=== PATIENT | female | born 1955 | race Caucasian/White ===

== ENCOUNTER 2016-10-24 09:02 | Day surgery (SDC) | payer BC ==
[2016-10-24] MEDS ORDERED: LIDOCAINE 2% MDV (20MG/ML) 20ML VIAL IV ONE (14:00)
[2016-10-24] MEDS ORDERED: PROPOFOL 10 MG/ML VIAL IV ONE (14:00)
[2016-10-24] MEDS ORDERED: MIDAZOLAM HCL 2MG/2ML VIAL IV ONE (14:00)
--- NOTE | 2016-10-25 13:50 | Operative Note ---
DATE OF SURGERY: 10/24/2016. SURGEON: Ilir Mireles DO REFERRING PHYSICIAN: Sandra Leiva MD OPERATION: COLONOSCOPY WITH COLD FORCEP POLYPECTOMY X5 PREOPERATIVE DIAGNOSES: 1. Personal history of adenomatous polyp. 2. Five year followup. POSTOPERATIVE DIAGNOSES: Colon polyps x5 status post cold forceps polypectomy. PROCEDURE: After informed consent was obtained with the patient, she was placed in the lateral decubitus position in the endoscopy suite, sedated and monitored by the Department of Anesthesia. Once sedated, digital rectal exam was performed which was unremarkable. A well-lubricated PCF 180 colonoscope was inserted in the rectum and advanced to the cecum. The preparation quality was good. The cecum, ileocecal valve, appendicial orifice were unremarkable. The ascending colon revealed three diminutive polyps removed with cold forceps. Minimal bleeding was noted. The remainder of the ascending colon and transverse colon and descending colon are unremarkable. There were three sigmoid colon polyps, each removed with cold forceps, minimal blood loss noted. The remainder of the sigmoid colon and rectum were unremarkable. Forward and J-turn views of the rectum and anorectum were unrevealing. The endoscope was straightened, the rectal ampulla deflated. The endoscope was removed. RECOMMENDATIONS: The patient will likely a require a repeat exam in 5 years or perhaps possibly 3 years, with a final determination to be based on tissue histology. She is to otherwise resume her medications and diet. As always, thank you for allowing me to participate in the care of your patient. Ilir Mireles DO CC: Dr. Ilir Leiva [facility]
== END 2016-10-24 10:59 | disposition home or self-care (01) ==
LOC: HOP 09:02
PROVIDERS: ATTEND Internal Medicine Gastroenterology
DX: Z09 Encounter for follow-up examination after completed treatment for conditions other than malignant neoplasm (principal); Z86.010 Personal history of colon polyps; D12.5 Benign neoplasm of sigmoid colon; D12.2 Benign neoplasm of ascending colon